=== PATIENT | female | born 1970 | race Caucasian/White ===

== ENCOUNTER 2017-06-15 22:32 | Emergency (ER) | payer OTHER ==
[~2017-06-15] VITALS: Ht 172.7 cm; Wt 104.8 kg
[~2017-06-15 22:32] MED LIST: BENZ100C PO; HYDR-971 PO; PRED20TA PO
[2017-06-15 22:55] VITALS: BP 154/92
[2017-06-15] MEDS ORDERED: IBUPROFEN 600 MG TABLET. PO ONE ×2 (23:38→23:45)
--- NOTE | 2017-06-16 06:31 | ED.ADGEN ---
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 Injury occurred just prior to ED arrival. [] Review of Systems Review of Systems Review of symptoms. As per history of present illness] Current Medications Current Medications Current Medications Medications (Trade) Dose Ordered Sig/Radha Start Time Stop Time Status Last Admin Dose Admin Ibuprofen (Motrin) 600 mg STK-MED ONCE 06/15/17 23:38 06/15/17 23:39 DC Allergies Allergies Allergies Coded Allergies Type Severity Reaction Last Updated Verified No Known Drug Allergies 11/03/15 No Physical Exam Physical Exam Constitutional: Well developed, well nourished, no acute distress, non-toxic appearance. [] Extremities: Right, minimal left anterior superior lateral swelling, no deformity tenderness or redness. Range of motion intact. [ Current Patient Data Vital Signs Vital Signs Date Time Temp Pulse Resp B/P (MAP) Pulse Ox O2 Delivery O2 Flow Rate FiO2 06/15/17 22:55 98.1 92 16 98 Room Air EKG EKG [] Radiology/Procedures Radiology/Procedures [Right knee: Unremarkable x-ray] Course & Med Decision Making Course & Med Decision Making Pertinent Labs and Imaging studies reviewed. (See chart for details) [Ibuprofen given] Final Impression Final Impression [#1 right knee contusion] Problems: Dragon Disclaimer Dragon Disclaimer This electronic medical record was generated, in whole or in part, using a voice recognition dictation system. MORTEZA CHANG DO Jun 16, 2017 06:31
--- NOTE | 2017-06-16 07:37 | RAD ---
Left knee, 3 views, 06/15/2017: History: Knee injury, pain No fracture or dislocation is identified. No significant arthritic change is seen. There is no evidence of a significant joint effusion. IMPRESSION: No significant left knee abnormality is detected.
== END 2017-06-16 00:07 | disposition home or self-care (01) ==
LOC: ER 22:32
DX: S80.01XA Contusion of right knee, initial encounter (principal); I10 Essential (primary) hypertension; X50.1XXA Overexertion from prolonged static or awkward postures, initial encounter; Y93.89 Activity, other specified; Y99.8 Other external cause status; Y92.89 Other specified places as the place of occurrence of the external cause
CPT/HCPCS: 29505; 73562; 99284-25